=== PATIENT | male | born 1955 | race Caucasian/White ===

== ENCOUNTER → 2016-08-28 | Outpatient (CLI) | payer BC ==
[2016-08-28 09:33] LABS: BASOPHILS % (AUTO) 0 % (0-2); EOSINOPHILS # (AUTO) 0.1 10^3uL; EOSINOPHILS % (AUTO) 3 % (0-4); LYMPHOCYTES # (AUTO) 1.9 X10^3; MEAN CORPUSCULAR HGB CONC 34.6 g/dL (31.0-37.0); MEAN CORPUSCULAR VOLUME 91 FL (80-100); MEAN PLATELET VOLUME 10.2 FL (6.0-9.5); MONOCYTES # (AUTO) 0.3 X10^3; MONOCYTES % (AUTO) 6 % (3-11); NEUTROPHILS # (AUTO) 2.3 X10^3; NEUTROPHILS % (AUTO) 50 % (51-67); PLATELET COUNT 191 10^3uL (150-450); WHITE BLOOD COUNT 4.65 10^3uL (4.0-11.0)
[2016-08-28 09:38] LABS: MEAN CORPUSCULAR HEMOGLOBIN 31.6 PG (26.0-34.0)
[2016-08-28 09:57] LABS: ALBUMIN 4.4 g/dL (3.4-5.0); ANION GAP 14.5 MEQ/L (3-15); CALCULATED IONIZED CALCIUM 3.9 mg/dL (3.8-4.6); TOTAL PROTEIN 7.6 g/dL (6.4-8.5)
== END ==
LOC: LAB 09:17
PROVIDERS: ATTEND Internal Medicine Hematology & Oncology
DX: D59.5 Paroxysmal nocturnal hemoglobinuria [Marchiafava-Micheli] (principal); D64.9 Anemia, unspecified
CPT/HCPCS: 36415; 80053; 83615; 85025

== ENCOUNTER 2016-11-26 18:24 | Emergency (ER) | payer OTHER, BC ==
[~2016-11-26] VITALS: Ht 185.4 cm; Wt 104.5 kg
[2016-11-26] MEDS ORDERED: ZPR80C PO (18:42)
[2016-11-26] MEDS ORDERED: ESCI10TA PO (18:42)
[2016-11-26] MEDS ORDERED: ATOR40TA2 PO (18:42)
[2016-11-26] MEDS ORDERED: LVT.1T PO (18:42)
--- NOTE | 2016-11-26 18:55 | NUR ---
Report received, care assumed.
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
[2016-11-26] MEDS ORDERED: HYDR-3702 PO (20:05)
[2016-11-26] MEDS ORDERED: ED- HYDROcodone/ACETAMINOPHEN 5MG/325MG (NORCO) 6 TABLETS/BTL PO ONE (20:10)
[2016-11-26] MEDS ORDERED: BACITRACIN OINTMENT 0.9 GM PACKET TOP ONE (20:10)
[2016-11-26 20:37] VITALS: BP 118/73
--- NOTE | 2016-11-26 20:37 | NUR ---
Pt dismissed to home with instructions, prepack and prescription. Pt stated his understanding. No other concerns or questions presented. Pt ambulated out to POV.
== END 2016-11-26 20:37 | disposition home or self-care (01) ==
LOC: ED 18:28
DX: S13.4XXA Sprain of ligaments of cervical spine, initial encounter (principal); S80.02XA Contusion of left knee, initial encounter; V53.5XXA Driver of pick-up truck or van injured in collision with car, pick-up truck or van in traffic accident, initial encounter; Y92.414 Local residential or business street as the place of occurrence of the external cause; Y93.89 Activity, other specified; Y99.8 Other external cause status
CPT/HCPCS: 72125; 73562; 99283

== ENCOUNTER → 2016-11-26 | Outpatient (CLI) | payer BC ==
[~2016-11-26] MED LIST: ATOR40TA2 PO; ESCI10TA PO; HYDR-3702 PO; LVT.1T PO; ZPR80C PO
== END ==
LOC: EMS 13:13
DX: Z53.20 Procedure and treatment not carried out because of patient's decision for unspecified reasons (principal)

== ENCOUNTER 2016-11-28 23:33 | Emergency (ER) | payer OTHER, BC ==
[~2016-11-28] VITALS: Ht 185.4 cm; Wt 104.0 kg
--- OUTSIDE RECORDS SUMMARY | 2016-11-28 23:37 | XMS REPORT | Continuity of Care Document ---
Author Author [facility] Address Unknown Phone Unavailable Care Team Providers Care Emergency Detail Driver Name Role Phone Omid Pino MD PCP [phone] Insurance Providers Payer Name Policy Number Subscriber Name Relationship [facility] [id number] Tamir Baker 18 Self / Same As Patient Advance Directives Directive Response Recorded Date/Time Advanced Directives Unknown 11/26/16 6:33pm Chief Complaint and Reason for Visit Chief Complaint Pain Reason for Visit [id number] Contusion Problems Active Problems Medical Problem Onset Date Status Cervical strain Unknown Acute Contusion Unknown Acute Medications Current Home Medications Medication Dose Units Route Directions Days/Qty Instructions Start Date Ziprasidone Hcl 80 Mg 80 Mg ORAL Daily 11/26/16 Atorvastatin Calcium 40 Mg 40 Mg ORAL Daily 11/26/16 Escitalopram Oxalate 10 Mg 10 Mg ORAL Daily 11/26/16 Levothyroxine Sodium (Synthroid) 100 Mcg 100 Mcg ORAL Daily 11/26/16 Acetaminophen/Hydrocodone Bitart 1 Each 1-2 Tab ORAL Every 4HRS as needed for Pain 30 11/26/16 Social History Query Response Start Date Stop Date Smoking Status Current some day smoker Hospital Discharge Instructions No hospital discharge instructions. Plan of Care Discharge Date 11/26/16 8:37pm Disposition 01 HOME OR SELF-CARE Condition at Discharge Stable Instructions/Education Provided Neck Sprain (DC) Prescriptions See Medication Section Referrals Omid Pino MD - Additional Instructions/Education ED RUBI if any worse. See your doctor as scheduled tomorrow. Some of your test results may not be complete prior to your leaving the Emergency Department. The Emergency Department is not authorized to give test results over the phone. Please contact the doctor's office listed in this packet of information for your final results. Follow up with your primary care physician or return to the Emergency Department for worsening or worrisome symptoms. * Emergency Department phone number: [phone], x [phone]* MEDICAL RECORD If you need copies of your X-rays, call [phone]. If you need copies of your medical record, including lab results, a signed authorization for release of records will be required. A telephone call for release of Health Information is not allowed. BILLING Billing can sometimes be confusing and frustrating. To help avoid confusion in the future, please take a moment to acquaint yourself with the billing parties for services. SERVICE BILLING [facility] Physician Services [facility] Patients will receive bills for services from the appropriate provider. If you have any questions about your [facility] bill, our staff will be happy to assist you. Please call [phone], and ask for the billing department. THANK YOU for choosing [facility] as your emergency care provider! Care Plan and Goals Follow instructions and take meds as prescribed Functional Status No functional status results. Allergies, Adverse Reactions, Alerts No known allergies. Immunizations No immunization records. Vital Signs Acute Vital Signs Vital Response Date/Time Temperature (Fahrenheit) 98.4 11/26/2016 8:37pm Pulse 64 bpm 11/26/2016 8:37pm Respirations 18 11/26/2016 8:37pm Height 6 ft 1 in Weight 230 lb Body Mass Index 30.0 kg/m^2 Results No known relevant diagnostic tests, laboratory data and/or discharge summary. Procedures No known history of procedures. Encounters Encounter Location Arrival/Admit Date Discharge/Depart Date Attending Provider Departed Emergency Room [facility] 11/26/16 6:28pm 11/26/16 8:37pm FELICE ALBARRAN MD Registered Clinic [facility] 11/26/16 1:13pm UNKNOWN Recent Diagnosis
[2016-11-28 23:55] VITALS: BP 115/65
== END 2016-11-29 00:25 | disposition home or self-care (01) ==
LOC: ED 23:36
DX: R20.2 Paresthesia of skin (principal); V53.5XXA Driver of pick-up truck or van injured in collision with car, pick-up truck or van in traffic accident, initial encounter; Y92.410 Unspecified street and highway as the place of occurrence of the external cause; Y99.8 Other external cause status
CPT/HCPCS: 99281; 99282